=== PATIENT | male | born 1975 | race Caucasian/White ===

== ENCOUNTER 2020-12-04 12:27 | Emergency (ER) | payer OTHER, SELFPAY ==
[2020-12-04 12:30] VITALS: BP 163/98; PULSE 78; RESP 20; TEMP 36.6; O2SAT 98
--- NOTE | 2020-12-04 12:32 | ED.WOUNDLAC ---
HPI - Wound/Laceration General Chief Complaint: Skin/Abscess/Foreign Body Stated Complaint: thumb Time Seen by Provider: 12/04/20 12:36 Source: patient and family Mode of arrival: ambulatory Limitations: no limitations History of Present Illness HPI narrative: Patient comes in with what he believes is a splinter in his right thumb, just below the nail. It has broken off so that he cannot get at the splinter to pull it out. Pain is moderately severe to severe, sharp, ongoing since assident happened a few minutes prior to presentation. He was unable to remove the splinter at home. Nothing made the pain better or worse. Onset (ago): minute(s) Place: home Context: accidental Associated symptoms: none Related Data Home Medications Medication Instructions Recorded Confirmed Nexium 20 mg BYMOUTH DAILY 12/04/20 12/04/20 meloxicam 15 mg BYMOUTH DAILY 12/04/20 12/04/20 Allergies Allergy/AdvReac Type Severity Reaction Status Date / Time No Known Allergies Allergy Verified 12/04/20 12:52 Review of Systems Review of Systems: ROS unobtainable: Yes unobtainable due to medical condition Constitutional: Constitutional: Reports no additional constitutional complaints Eyes: Eyes: Reports no additional eye complaints ENT: Reports system reviewed and no additional complaints, except as documented Cardiovascular: Cardiovascular: Reports no additional cardiovascular complaints Respiratory: Respiratory: Reports no additional respiratory complaints Gastrointestinal: Gastrointestinal: Reports no additional gastrointestinal complaints Genitourinary: Genitourinary: Reports no additional male genitourinary complaints Musculoskeletal: Musculoskeletal: Reports no additional musculoskeletal complaints Integumentary/Breasts: Skin/Breast: Reports system reviewed and no additional complaints, except as docu Neurologic: Reports system reviewed and no additional complaints, except as documented Psychiatric: Psychiatric: Reports no additional psychiatric complaints Endocrine: Endocrine: Reports no additional endocrine complaints Hematologic/Lymphatic: Hematologic/Lymphatic: Reports no additional hematologic/lymphatic complaints Allergic/Immunologic: Allergic/Immunologic: Reports no additional allergic/immunologic complaints PMFSH Past Medical History Medical History GERD (gastroesophageal reflux disease) Osteoarthritis Surgical History Surgical History H/O hernia repair Previous back surgery Exam Const: Orientation/consciousness: patient oriented x3 HENMT: Head: normal to inspection Ears: external ears normal General nose exam: Normal external nose present Face and sinus: normal facial exam Eyes: Conjunctivae: conjunctivae normal Neck: Neck: normal visual inspection Chest: Chest palpation & inspection: normal inspection of the chest Resp: Effort & Inspection: normal respiratory effort Auscultation: clear to auscultation bilaterally Cardio: Rate: regular rate Rhythm: regular rhythm GI: Other: abdomen negative Back/Spine/Pelvis: Back: no CVA tenderness Skin: General skin exam: normal color Neuro: General: patient oriented x3 and moves all extremities Extrem: General: normal to inspection Other: He appears to have a large splinter under his right thumb nail. Psych: Appearance: grossly normal Mental Status: mental status grossly normal Thought content: Yes Normal thought content present Course Course Emergency Course: He appeared to have a large splinter under his right thumb nail. This could not be removed, as the nail was in the way. A digital block was performed with 1% lidocaine 3cc to each side. Following this an 11 blade was used to remove the lateral 1/4th of the nail. Then the splinter was identified and removed. He had a splinter roughly one inch long under the nail that was very close t
[2020-12-04] MEDS: LIDOCAINE HCL 1% LOCAL INJ 20 ML VIAL 10 ML INFILTRATE (12:51)
[2020-12-04] MEDS: NEOMYCIN/POLYMYXIN/BACITRACIN OINTMENT PACKET 1 PACKET TOPICAL (13:09)
[2020-12-04 13:10] VITALS: BP 152/97; PULSE 78; RESP 20; O2SAT 98
[2020-12-04] MEDS: Please add drug allergy info to patient profile. 1 EACH XX (13:10)
== END 2020-12-04 13:13 | disposition home or self-care (01) ==
PROVIDERS: Emergency Provider Emergency Medicine
DX: S60.351A Superficial foreign body of right thumb, initial encounter (principal)
CPT/HCPCS: 99283; A9270

== ENCOUNTER 2021-01-07 09:53 | Outpatient (CLI) | payer OTHER, SELFPAY | END 2021-01-07 09:54 | disposition home or self-care (01) | LOC: CHSCOVIDVC 09:53 | DX: Z23 Encounter for immunization (principal) | CPT/HCPCS: 0011A; 91301 ==

== ENCOUNTER 2021-01-21 08:10 | Outpatient (CLI) | payer OTHER, SELFPAY ==
--- NOTE | ~2021-01-21 | MR_ITS ---
EXAMINATION: MR lumbar spine wo/w con EXAM DATE: 01/21/2021 09:52 INDICATION: Low back pain. Fusion. TECHNIQUE: Multi-sequential, multiplanar MR images of the lumbar spine were obtained without contrast . Sagittal T1, T2, T2 fat saturation images. Axial T2 weighted images. Axial T1 weighted sequence. Patient was then injected with 10 mL Multihance intravenous contrast and reimaged. Postcontrast axi al and sagittal T1-weighted fat saturation sequences were obtained. There are no prior studies for co mparison. FINDINGS: Posterior and interbody fusion at L4-5 with L4 and L5 laminotomies. Mild loss of the L3-4 d isc height. The vertebral body and disc heights are otherwise well maintained. The vertebral bodies a re aligned in the AP dimension. The conus medullaris terminates at the T12-L1 level and has normal si gnal intensity and morphology. There are no suspicious marrow signal abnormalities. Paraspinal soft tissue is unremarkable.. There are no areas of abnormal enhancement on the post contrast images. Level by level evaluation: T12-L1: Disc does not extend beyond the endplate margin. Facet arthropathy: None. Neural foraminal stenosis: No stenosis. Central canal stenosis: No stenosis. L1-L2: Disc does not extend beyond the endplate margin. Facet arthropathy: Mild. Neural foraminal stenosis: No stenosis. Central canal stenosis: No stenosis. L2-L3: Disc does not extend beyond the endplate margin. Facet arthropathy: Mild. Neural foraminal stenosis: No stenosis. Central canal stenosis: No stenosis. L3-L4: There is a moderate diffuse disc bulge. Facet arthropathy: Moderate. Neural foraminal stenosis: Moderate bilateral. Central canal stenosis: Moderate. L4-L5: This level is fused. Facet arthropathy: Fused. Neural foraminal stenosis: No stenosis. Central canal stenosis: No stenosis. Posterior decompression. L5-S1: Disc does not extend beyond the endplate margin. Facet arthropathy: Mild. Neural foraminal stenosis: No stenosis. Central canal stenosis: No stenosis. IMPRESSION: 1. L3-4 moderate stenosis. 2. L4-5 fusion, laminectomies. Reviewed, dictated and finalized at location A.
== END 2021-01-21 08:11 | disposition home or self-care (01) ==
LOC: CHSIMG 08:12
DX: M54.5 Low back pain (principal); M48.07 Spinal stenosis, lumbosacral region
CPT/HCPCS: 72158; A9577

== ENCOUNTER 2021-02-04 09:59 | Outpatient (CLI) | payer OTHER, SELFPAY | END 2021-02-04 10:00 | disposition home or self-care (01) | LOC: CHSCOVIDVC 09:59 | DX: Z23 Encounter for immunization (principal) | CPT/HCPCS: 0012A; 91301 ==